=== PATIENT | male | born 1990 | race Caucasian/White ===

== ENCOUNTER 2025-07-21 10:27 | Outpatient (CLI) | payer BC, SELFPAY ==
--- NOTE | 2025-07-21 10:38 | XRR_ITS ---
PROCEDURE INFORMATION: Exam: XR Right Knee Exam date and time: 07/21/2025 10:47 AM Age: 35 years old Clinical indication: Pain; Knee; Bilateral; Additional info: Bilateral knee pain TECHNIQUE: Imaging protocol: Radiologic exam of the right knee. Views: 3 views. COMPARISON: No relevant prior studies available. FINDINGS: Bones/joints: No acute fracture or dislocation. Soft tissues: Normal. XR/XR knee RT 3V* [id number] IMPRESSION: No acute osseous findings.
--- NOTE | 2025-07-21 10:38 | XRR_ITS ---
PROCEDURE INFORMATION: Exam: XR Lumbosacral Spine Exam date and time: 07/21/2025 10:47 AM Age: 35 years old Clinical indication: Low back pain TECHNIQUE: Imaging protocol: Radiologic exam of the lumbosacral spine. Views: 4 or 5 views. COMPARISON: No relevant prior studies available. FINDINGS: Bones/joints: Normal. No acute fracture. Normal alignment. Hypoplastic ribs at T12. Soft tissues: Unremarkable. XR/XR lumbar spine min 4V [id number] IMPRESSION: No acute findings.
--- NOTE | 2025-07-21 10:38 | XRR_ITS ---
PROCEDURE INFORMATION: Exam: XR Left Knee Exam date and time: 07/21/2025 10:47 AM Age: 35 years old Clinical indication: Pain; Knee; Bilateral; Additional info: Bilateral knee pain TECHNIQUE: Imaging protocol: Radiologic exam of the left knee. Views: 3 views. COMPARISON: No relevant prior studies available. FINDINGS: Bones/joints: No acute fracture or dislocation. Soft tissues: Normal. XR/XR knee LT 3V* [id number] IMPRESSION: No acute osseous findings.
== END 2025-07-21 10:28 | disposition home or self-care (01) ==
LOC: RAD 10:31
PROVIDERS: PCP Nurse Practitioner Family; Visit Provider Nurse Practitioner Family
DX: M25.562 Pain in left knee (principal); M25.561 Pain in right knee; M54.50 Low back pain, unspecified; Q76.6 Other congenital malformations of ribs
CPT/HCPCS: 72110; 73562